=== PATIENT | male | born 1935 | race Caucasian/White ===

== ENCOUNTER 2016-04-01 12:41 | Emergency (ER) | payer MEDICARE, OTHER ==
[~2016-04-01] VITALS: Ht 172.7 cm; Wt 95.0 kg
[2016-04-01 12:45] VITALS: BP 194/91; PULSE 50; RESP 14; TEMP 98.1; O2SAT 95
[2016-04-01] MEDS ORDERED: XARE15TA PO (14:34)
[2016-04-01] MEDS ORDERED: SIMV40TA PO (14:34)
[2016-04-01] MEDS ORDERED: PIOG30TA4 PO (14:34)
[2016-04-01] MEDS ORDERED: GLIM2TAB PO (14:34)
[2016-04-01] MEDS ORDERED: ZYRT10TA PO (14:34)
[2016-04-01] MEDS ORDERED: ASPI1TAB69 PO (14:34)
[2016-04-01] MEDS ORDERED: CENTTAB PO (14:34)
[2016-04-01] MEDS ORDERED: VALS1TAB70 PO (14:34)
--- NOTE | 2016-04-01 14:37 | PD ---
HPI Chief Complaint: Fall Time Seen by Provider: 14:25 Travel History International Travel<30 days: No Contact w/Intl Traveler<30days: No Traveled to known affect area: No History of Present Illness HPI 80-year-old male on xarelto presents for evaluation after a mechanical fall. He reports that yesterday evening he tripped on the sidewalk and fell, landing on left side of his body. He denies loss of consciousness. He is primarily having pain in the left rib cage which is sharp and worse with inspiration. He also has some left upper quadrant abdominal tenderness. He has some old bruising on the left hand as well as an abrasion to the anterior left knee and a small wound to left side of his ear from the fall. He is denying any headache , nausea or vomiting, shortness of breath, neck or back pain. He has been ambulatory. His last tetanus vaccination was 3-4 years ago. He has no other complaints at this time. PFSH Past Medical History Hx Anticoagulant Therapy: Yes (XARELTO) Cardiovascular Problems: Yes Diminished Hearing: Yes (teri) Tetanus Vaccination: < 5 Years Influenza Vaccination: Yes ?: Not Social History Alcohol Use: Yes (1 glass of wine daily) Tobacco Use: No Substance Use: No Allergies-Medications (Allergen,Severity, Reaction): Coded Allergies: No Known Allergies (Unverified , 04/01/16) Reported Meds & Prescriptions Reported Meds & Active Scripts Active Reported Zyrtec Allergy (Cetirizine HCl) 10 Mg Tab 10 Mg PO DAILY Valsartan 320 Mg Tab 320 Mg PO DAILY Simvastatin 40 Mg Tab 40 Mg PO HS Xarelto (Rivaroxaban) 15 Mg Tab 15 Mg PO DAILY Pioglitazone (Pioglitazone HCl) 30 Mg Tab 30 Mg PO DAILY Centrum Silver (Multiple Vitamins W/ Minerals) 1 Tab 1 Tab PO DAILY Glimepiride 2 Mg Tab 2 Mg PO DAILY Take with breakfast or first main meal Aspirin 81 Mg Tabdr 81 Mg PO DAILY Review of Systems Except as stated in HPI: all other systems reviewed are Neg Physical Exam Narrative GENERAL: Well-developed well-nourished male in no acute distress SKIN: Warm and dry. There is ecchymosis on the left hand which the patient reports is old, nontender. Abrasions noted to the left anterior knee, abrasions of the left ear. HEAD: Atraumatic. Normocephalic. EYES: Pupils equal and round. No scleral icterus. No injection or drainage. ENT: No nasal bleeding or discharge. Mucous membranes pink and moist. NECK: Trachea midline. No JVD. CARDIOVASCULAR: Regular rate and rhythm. No murmur appreciated. RESPIRATORY: No accessory muscle use. Clear to auscultation. Breath sounds equal bilaterally. GASTROINTESTINAL: Abdomen soft, left upper quadrant mild tenderness to palpation without guarding. MUSCULOSKELETAL: No obvious deformities. There is tenderness to palpation to left anterior rib cage. The patient has no tenderness to palpation along the neck or back, arms or legs. He maintains normal gait, full range of motion of the upper or lower extremities. NEUROLOGICAL: Awake and alert. No obvious cranial nerve deficits. Motor grossly within normal limits. Normal speech. PSYCHIATRIC: Appropriate mood and affect; insight and judgment normal. Data Data Last Documented VS Vital Signs Date Time Temp Pulse Resp B/P Pulse Ox O2 Delivery O2 Flow Rate FiO2 04/01/16 15:13 54 16 190/90 96 04/01/16 12:45 98.1 Orders Complete Blood Count With Diff (04/01/16 14:33) Basic Metabolic Panel (Bmp) (04/01/16 14:33) Act Partial Throm Time (Ptt) (04/01/16 14:33) Prothrombin Time / Inr (Pt) (04/01/16 14:33) Ribs, Uni (W/Exp Cxr-Min 3vw) (04/01/16 ) Ct Brain W/O Iv Contrast(Rout) (04/01/16 ) Iv Access Insert/Monitor (04/01/16 14:33) Ct Abd/Pel W Iv Contrast(Rout) (04/01/16 14:33) Iohexol 350 Inj (Omnipaque 350 Inj) (04/01/16 15:52) Labs Laboratory Tests Test 04/01/16 14:47 White Blood Count 6.6 TH/MM3 Red Blood Count 4.54 MIL/MM3 Hemoglobin 14.9 GM/DL Hematocrit 43.3 % Mean Corpuscular Volume 95.5 FL Mean Corpuscular Hemoglobin 32.9 PG Mean Corpuscular Hemoglobin 34.5 % Concent Red Cell Distribution Width 14.7 % Platelet Count 121 TH/MM3 Mean Platelet Volume 10.1 FL Neutrophils (%) (Auto) 56.2 % Lymphocytes (%) (Auto) 28.3 % Monocytes (%) (Auto) 11.6 % Eosinophils (%) (Auto) 3.3 % Basophils (%) (Auto) 0.6 % Neutrophils # (Auto) 3.7 TH/MM3 Lymphocytes # (Auto) 1.9 TH/MM3 Monocytes # (Auto) 0.8 TH/MM3 Eosinophils # (Auto) 0.2 TH/MM3 Basophils # (Auto) 0.0 TH/MM3 CBC Comment DIFF FINAL Differential Comment Prothrombin Time 14.0 SEC Prothromb Time International 1.3 RATIO Ratio Activated Partial 35.1 SEC Thromboplast Time Sodium Level 141 MEQ/L Potassium Level 3.9 MEQ/L Chloride Level 108 MEQ/L Carbon Dioxide Level 26.2 MEQ/L Anion Gap 7 MEQ/L Blood Urea Nitrogen 23 MG/DL Creatinine 1.19 MG/DL Estimat Glomerular Filtration 59 ML/MIN Rate Random Glucose 84 MG/DL Calcium Level 8.6 MG/DL MDM Medical Decision Making Medical Screen Exam Complete: Yes Emergency Medical Condition: Yes Medical Record Reviewed: Yes Interpretation(s) Rib x-ray CONCLUSION: 1. Nondisplaced fracture involving the left posterior lateral seventh rib. 2. Degenerative change left glenohumeral joint. CT brain no acute abnormalities CT abdomen and pelvis Differential Diagnosis Rib fracture, contusion, hemothorax, pneumothorax, splenic laceration Narrative Course 80-year-old male on xarelto presents after mechanical fall yesterday in which she landed on left side of his body. He did hit his head. Given his anticoagulant use a CT of the brain will be ordered. His primary complaint is left-sided chest pain as well as some left upper quadrant abdominal pain. Plan is for CT the abdomen and pelvis with IV contrast, as well as rib x-ray. Imaging studies reveal a nondisplaced fracture involving the left posterior lateral seventh rib. No other injuries are noted. Patient has been stable during his hospital stay with no shortness of breath. Plan is to discharge the patient with an incentive Spirometer. I offered to discharge the patient with a short course of pain medication however he is declining. I did discuss signs and symptoms that would warrant return to the emergency room such as acute shortness of breath, bad cough, fevers, hemoptysis and he verbalizes understanding. He is stable for discharge. Diagnosis Primary Impression: Left rib fracture Qualified Code: S22.32XA - Closed fracture of one rib of left side, initial encounter Additional Instructions: Take Tylenol as needed for discomfort per dosing instructions and the follow. Use the incentive spirometer 10 times an hour every hour while awake. Follow- up with your primary care physician in 2 weeks. Return for any acutely new or worsening symptoms as discussed. Med/Other Pt SpecificInfo: No Change to Meds Disposition: 01 DISCHARGE HOME Condition: Stable Jamie Paz Apr 01, 2016 14:37
[2016-04-01 15:02] LABS: AUTOMATED NEUTROPHIL # 3.7 TH/MM3 (1.8-7.7); BASOPHIL % 0.6 % (0.0-2.0); EOSINOPHIL # 0.2 TH/MM3 (0-0.4); EOSINOPHIL % 3.3 % (0.0-4.0); HEMATOCRIT 43.3 % (39.0-51.0); HEMO FLAGS DIFF FINAL; LYMPH % 28.3 % (9.0-44.0); LYMPHOCYTE # 1.9 TH/MM3 (1.0-4.8); MEAN CELL VOLUME 95.5 FL (80.0-100.0); MEAN CORPUSCULAR HEMOGLOBIN 32.9 PG (27.0-34.0); MEAN CORPUSCULAR HGB CONC 34.5 % (32.0-36.0); MONO % 11.6 % (0.0-8.0); NEUT % 56.2 % (16.0-70.0); PLATELET COUNT 121 TH/MM3 (150-450); RED BLOOD COUNT 4.54 MIL/MM3 (4.50-5.90); RED CELL DISTRIBUTION WIDTH 14.7 % (11.6-17.2); WHITE BLOOD COUNT 6.6 TH/MM3 (4.0-11.0)
[2016-04-01 15:13] VITALS: BP 190/90; PULSE 54; RESP 16; O2SAT 96
[2016-04-01 15:15] LABS: APTT (PATIENT) 35.1 SEC (24.3-30.1); BICARBONATE 26.2 MEQ/L (21.0-32.0); INTERNATIONAL NORMALIZED RATIO 1.3 RATIO; POTASSIUM 3.9 MEQ/L (3.5-5.1)
[2016-04-01] MEDS ORDERED: IOHEXOL 350 MG/ML 10 ML VIAL (for RAD DIAG) IV ONE (15:52)
--- NOTE | 2016-04-01 15:54 | RADRPT ---
EXAM DATE/TIME: 04/01/2016 15:35 [facility] COMPARISON: No previous studies available for comparison. INDICATIONS : Trip and fall, landed on left side. RADIATION DOSE: 56.35 CTDIvol (mGy) MEDICAL HISTORY : Hypertension. Cardiovascular disease SURGICAL HISTORY : Tonsillectomy. hernia repair ENCOUNTER: Initial ACUITY: 1 day PAIN SCALE: 4/10 LOCATION: Left cranial TECHNIQUE: Multiple contiguous axial images were obtained of the head. Using automated exposure control and adjustment of the mA and/or kV according to patient size, radiation dose was kept as low as reasonably achievable to obtain optimal diagnostic quality images. FINDINGS: CEREBRUM: The ventricles are normal for age. No evidence of midline shift, mass lesion, hemorrha ge or acute infarction. No extra-axial fluid collections are seen. POSTERIOR FOSSA: The cerebellum and brainstem are intact. The 4th ventricle is midline. The cer ebellopontine angle is unremarkable. EXTRACRANIAL: The visualized portion of the orbits is intact. SKULL: The calvaria is intact. No evidence of skull fracture. CONCLUSION: Negative trauma study. Dejon Alcocer MD on April 01, 2016 at 15:52 Board Certified Radiologist. This report was verified electronically.
--- NOTE | 2016-04-01 16:01 | RADRPT ---
EXAM DATE/TIME: 04/01/2016 15:00 [facility] COMPARISON: No previous studies available for comparison. INDICATIONS : Left side rib pain, fall. MEDICAL HISTORY : Hypertension. SURGICAL HISTORY : None. ENCOUNTER: Initial ACUITY: 2 days PAIN SCORE: 7/10 LOCATION: Left upper chest FINDINGS: Multiple views of the left ribs were performed. There is a nondisplaced fracture of the left posterio r lateral seventh rib. Degenerative changes noted in the glenohumeral joint with joint space loss and hypertrophic change.. No destructive lesions or areas of periosteal thickening are seen. Expirator y view of the chest is negative for pneumothorax. The mediastinal structures are midline. There is no pneumothorax. CONCLUSION: 1. Nondisplaced fracture involving the left posterior lateral seventh rib. 2. Degenerative change left glenohumeral joint. Dejon Alcocer MD on April 01, 2016 at 15:57 Board Certified Radiologist. This report was verified electronically.
--- NOTE | 2016-04-01 16:07 | RADRPT ---
EXAM DATE/TIME: 04/01/2016 15:40 [facility] COMPARISON: No previous studies available for comparison. INDICATIONS : Trip and fall, landed on left side. IV CONTRAST: 90 cc Omnipaque 350 (iohexol) IV ORAL CONTRAST: No oral contrast ingested. RADIATION DOSE: 10.29 CTDIvol (mGy) MEDICAL HISTORY: Hypertension. Cardiovascular disease SURGICAL HISTORY: Hernia surgery ENCOUNTER: Initial ACUITY: 1 day PAIN SCALE: 5/10 LOCATION: Left upper quadrant TECHNIQUE: Volumetric scanning of the abdomen and pelvis was performed. Using automated exposure control and ad justment of the mA and/or kV according to patient size, radiation dose was kept as low as reasonably achievable to obtain optimal diagnostic quality images. FINDINGS: There are minimal bibasilar parenchymal changes noted. The liver, spleen, pancreas and adrenals unremarkable. There is a 4.6 cm cyst in the right kidney. A smaller 1 cm cyst is seen in the left. Extensive atherosclerotic vascular calcifications are seen in both kidneys. Cecum and terminal ileum are unremarkable. Multiple diverticula are seen throughout the colon with diverticulitis. Previous hernia surgery is n oted on the right. Prominent prostate is evident. Review of bone windows reveals rib fractures on the left without pneumothorax. Extensive degenerative changes are seen in the lumbar spine. CONCLUSION: Left rib fracture without pneumothorax. Osmani Arteaga MD FACR on April 01, 2016 at 15:57 Board Certified Radiologist. This report was verified electronically.
== END 2016-04-01 16:48 | disposition home or self-care (01) ==
LOC: NEPC 12:41
DX: S22.32XA Fracture of one rib, left side, initial encounter for closed fracture (principal); W18.09XA Striking against other object with subsequent fall, initial encounter; Y92.480 Sidewalk as the place of occurrence of the external cause; Z79.01 Long term (current) use of anticoagulants
CPT/HCPCS: 70450; 71101; 74177; 80048; 85025; 85610; 85730; 94150; 99284; Q9967